=== PATIENT | male | born 1970 | race Caucasian/White ===

== ENCOUNTER 2017-11-07 11:45 | Emergency (ER) | payer MEDICAID ==
[2017-11-07] MEDS ORDERED: Fluorescein 1 MG Ophth Strip EYELF ONE (11:47)
[2017-11-07] MEDS ORDERED: Tetracaine HCl/PF 0.5% 4 ML Bottle EYELF ONE (11:47)
[2017-11-07 11:51] VITALS: BP 140/80
[2017-11-07] MEDS ORDERED: Gentamicin 0.3% Ophth Soln 5 ML Bottle ONE (12:09)
--- NOTE | 2017-11-07 12:12 | EDM.PDOC ---
ED HPI GENERAL MEDICAL PROBLEM - General Chief Complaint: ENT Problem Stated Complaint: PIECE OF METAL IN LEFT EYE Time Seen by Provider: 11/07/17 12:00 Source of Information: Reports: Patient History Limitations: Reports: No Limitations - History of Present Illness INITIAL COMMENTS - FREE TEXT/NARRATIVE: This 46 yo male patient reports to the ED with pain in his left eye. The patient reports he believes that he got something in his eye yesterday afternoon when he was grinding metal. The patient has continued to have pain in the eye since that time. The patient has not been seen by a provider for this at this time. Onset: Today Duration: Constant Location: Reports: Face (left eye) Quality: Reports: Ache, Sharp Severity: Moderate Improves with: Reports: None Worsens with: Reports: None Associated Symptoms: Reports: No Other Symptoms Left Eye Pain Score (Numeric/FACES): 8 - Related Data Allergies Allergy/AdvReac Type Severity Reaction Status Date / Time tramadol Allergy Dizziness Verified 12/13/15 11:18 Home Meds: Home Meds . [No Known Home Meds] 12/30/14 [History] Past Medical History - Past Surgical History Musculoskeletal Surgical History: Reports: Other (See Below) Other Musculoskeletal Surgeries/Procedures:: elbow surgeries Social & Family History - Family History Family Medical History: Noncontributory - Tobacco Use Smoking Status *Q: Current Every Day Smoker Years of Tobacco use: 28 Packs/Tins Daily: 1 - Caffeine Use Caffeine Use: Reports: Coffee, Soda - Recreational Drug Use Recreational Drug Use: No - Living Situation & Occupation Living situation: Reports: with Family Occupation: Employed ED ROS GENERAL - Review of Systems Review Of Systems: ROS reveals no pertinent complaints other than HPI. ED EXAM GENERAL W FULL EYE - Physical Exam Exam: See Below Exam Limited By: No Limitations General Appearance: Alert, WD/WN, No Apparent Distress Eye Exam: Left Eye: Corneal Abrasion, Foreign Body (Removed during visit), Bilateral Eye: PERRL Eyelids: Left: Edema, Foreign Body (upper) Cornea Exam: Left: Corneal Abrasion Extraocular Movements: Bilateral: Intact Pupils: Normal Accommodation Pupillary Size: Bilateral: 5 mm Pupillary Reaction: Bilateral: Brisk Ears: Normal External Exam, Normal Canal, Hearing Grossly Normal, Normal TMs Nose: Normal Inspection, Normal Mucosa, No Blood Throat/Mouth: Normal Inspection, Normal Lips, Normal Teeth, Normal Gums, Normal Oropharynx, Normal Voice, No Airway Compromise Head: Atraumatic, Normocephalic Neck: Normal Inspection, Supple, Non-Tender, Full Range of Motion Respiratory/Chest: No Respiratory Distress, Lungs Clear, Normal Breath Sounds, No Accessory Muscle Use, Chest Non-Tender Cardiovascular: Normal Peripheral Pulses, Regular Rate, Rhythm, No Edema, No Gallop, No JVD, No Murmur, No Rub GI/Abdominal: Normal Bowel Sounds, Soft, Non-Tender, No Organomegaly, No Distention, No Abnormal Bruit, No Mass (Male) Exam: Deferred Rectal (Males) Exam: Deferred Extremities: Normal Inspection, Normal Range of Motion, Non-Tender, Normal Capillary Refill, No Pedal Edema Neurological: Alert, Oriented, CN II-XII Intact, Normal Cognition, Normal Gait, Normal Reflexes, No Motor/Sensory Deficits Psychiatric: Normal Affect, Normal Mood Skin Exam: Warm, Dry, Intact, Normal Color, No Rash Lymphatic: No Adenopathy ED EYE w/ Add Procedure - Eye Procedure Eye FB Removal: Removal w/ Cotton Swab, Removal w/ Needle Antibiotic Oinment/Drps Admin: Left Eye Progress: Foreign body (x2) removed from cornea with eye spud during the visit and a foreign body removed from upper eyelid with cotton swab during visit. Course - Vital Signs Last Recorded V/S: Last Vital Signs Temp 37.1 C 11/07/17 11:50 Pulse 86 11/07/17 11:50 Resp 16 11/07/17 11:50 BP 140/80 11/07/17 11:50 Pulse Ox 99 11/07/17 11:50 - Orders/Labs/Meds Orders: Active Orders 24 hr Category Date Time Status Gentamicin [Garamycin 0.3% Ophth Soln] Med 11/07/17 13:00 Ordered 1 ml EYELF QID Medication Orders Gentamicin Sulfate (Garamycin 0.3% Ophth Soln) 1 ml EYELF QID JEANETTE Last Admin: 11/07/17 12:10 Dose: 1 ml Meds: Medications Generic Name Dose Route Start Last Admin Trade Name Freq PRN Reason Stop Dose Admin Gentamicin Sulfate 1 ml 11/07/17 13:00 11/07/17 12:10 Garamycin 0.3% Ophth Soln EYELF 1 ml QID JEANETTE Administration Discontinued Medications Generic Name Dose Route Start Last Admin Trade Name Javi PRN Reason Stop Dose Admin Fluorescein Sodium 1 mg 11/07/17 11:47 11/07/17 11:57 Ful-Desire EYELF 11/07/17 11:48 1 mg ONETIME ONE Administration Gentamicin Sulfate Confirm 11/07/17 12:09 Garamycin 0.3% Ophth Soln Administered 11/07/17 12:10 Dose 5 ml .ROUTE .STK-MED ONE Tetracaine HCl 1 ml 11/07/17 11:47 11/07/17 11:57 Tetracaine 0.5% Steri-Unit Roya EYELF 11/07/17 11:48 1 ml ONETIME ONE Administration Departure - Departure Time of Disposition: 12:09 Disposition: Home, Self-Care 01 Condition: Fair Clinical Impression: Foreign body of left eye Qualifiers: Encounter type: initial encounter Qualified Code(s): T15.92XA - Foreign body on external eye, part unspecified, left eye, initial encounter Corneal abrasion, left Qualifiers: Encounter type: initial encounter Qualified Code(s): S05.02XA - Injury of conjunctiva and corneal abrasion without foreign body, left eye, initial encounter - Discharge Information Instructions: Eye Foreign Body, [id number], Corneal Abrasion, [id number] Forms: ED Department Discharge Care Plan Goals: The patient was advised of the examination results during the visit. There were 2 pieces of foreign bodies removed from the left cornea and 1 removed from the left upper eyelid. The patient was discharged with Gentamycin Solution to place 1-2 drops in his left eye 4 times per day for at least 7 days. If the patient has any additional symptoms or further concerns, the patient should either visit his primary care facility or return to the emergency department. - My Orders Last 24 Hours: My Active Orders 11/07/17 13:00 Gentamicin [Garamycin 0.3% Ophth Soln] 1 ml EYELF QID - Assessment/Plan Last 24 Hours: My Active Orders 11/07/17 13:00 Gentamicin [Garamycin 0.3% Ophth Soln] 1 ml EYELF QID
[2017-11-07] MEDS ORDERED: Gentamicin 0.3% Ophth Soln 5 ML Bottle EYELF SCH (13:00)
== END 2017-11-07 12:22 | disposition home or self-care (01) ==
LOC: DL.ED 11:45
DX: T15.02XA Foreign body in cornea, left eye, initial encounter (principal); T15.12XA Foreign body in conjunctival sac, left eye, initial encounter; F17.210 Nicotine dependence, cigarettes, uncomplicated; Z88.5 Allergy status to narcotic agent
CPT/HCPCS: 65220; 67938; 99282; A9270-GY

== ENCOUNTER 2019-10-06 15:55 | Emergency (ER) | payer SELFPAY ==
[2019-10-06 16:11] VITALS: BP 140/83; PULSE 104
--- NOTE | 2019-10-06 16:32 | EDM.PDOC ---
ED HPI GENERAL MEDICAL PROBLEM - General Chief Complaint: General Stated Complaint: BLOOD PRESSURE HIGH Time Seen by Provider: 10/06/19 16:15 Source of Information: Reports: Patient, RN, RN Notes Reviewed History Limitations: Reports: No Limitations - History of Present Illness INITIAL COMMENTS - FREE TEXT/NARRATIVE: Presents to ER with complaint of high blood pressure. Patient states he checks his blood pressure at home with a wrist blood pressure monitor and states he has gotten various ranges from 1 60-200 systolically over 100-1 20 diastolically. Patient denies any blurred vision, headache, chest pains, shortness of breath. Patient states today he did not feel right, states his blood pressure read 160/100 at home. Patient does have an appointment to follow -up with Dr. Valdivia on October 18 regarding his blood pressure. Onset: Gradual Headache Pain Score (Numeric/FACES): 4 - Related Data Allergies Allergy/AdvReac Type Severity Reaction Status Date / Time tramadol Allergy Dizziness Verified 10/06/19 16:06 Home Meds: Home Meds Cyclobenzaprine [Flexeril] 10 mg PO BID PRN 10/06/19 [History] Past Medical History - Past Health History Medical/Surgical History: Denies Medical/Surgical History - Past Surgical History Musculoskeletal Surgical History: Reports: Other (See Below) Other Musculoskeletal Surgeries/Procedures:: elbow surgeries Social & Family History - Family History Family Medical History: Noncontributory - Tobacco Use Smoking Status *Q: Current Every Day Smoker Years of Tobacco use: 29 Packs/Tins Daily: 1 - Caffeine Use Caffeine Use: Reports: Coffee, Soda - Recreational Drug Use Recreational Drug Use: No - Living Situation & Occupation Living situation: Reports: with Family Occupation: Employed ED ROS GENERAL - Review of Systems Review Of Systems: Comprehensive ROS is negative, except as noted in HPI. ED EXAM, GENERAL - Physical Exam Exam: See Below Exam Limited By: No Limitations General Appearance: Alert, WD/WN, No Apparent Distress Eye Exam: Bilateral Eye: EOMI, Normal Inspection Ears: Normal External Exam, Hearing Grossly Normal Nose: Normal Inspection Throat/Mouth: Normal Inspection, Normal Voice, No Airway Compromise Head: Atraumatic, Normocephalic Neck: Normal Inspection, Supple, Non-Tender, Full Range of Motion Respiratory/Chest: No Respiratory Distress, Lungs Clear, Normal Breath Sounds, No Accessory Muscle Use, Chest Non-Tender Cardiovascular: Normal Peripheral Pulses, Regular Rate, Rhythm, No Edema, No Gallop, No JVD, No Murmur, No Rub Peripheral Pulses: 2+: Radial (L), Radial (R) GI/Abdominal: Normal Bowel Sounds, Soft, Non-Tender (Male) Exam: Deferred Rectal (Males) Exam: Deferred Back Exam: Normal Inspection, Full Range of Motion, NT Extremities: Normal Inspection, Normal Range of Motion, Non-Tender, Normal Capillary Refill, No Pedal Edema Neurological: Alert, Oriented, CN II-XII Intact, Normal Cognition, Normal Gait, Normal Reflexes, No Motor/Sensory Deficits Psychiatric: Normal Affect, Normal Mood Skin Exam: Warm, Dry, Intact, Normal Color, No Rash Lymphatic: No Adenopathy Course - Vital Signs Last Recorded V/S: Last Vital Signs Temp 98.2 F 10/06/19 16:08 Pulse 104 H 10/06/19 16:08 Resp 18 10/06/19 16:08 BP 140/83 10/06/19 16:08 Pulse Ox 100 10/06/19 16:08 Departure - Departure Time of Disposition: 16:33 Disposition: Home, Self-Care 01 Condition: Fair Clinical Impression: Physically well but worried - Discharge Information *PRESCRIPTION DRUG MONITORING PROGRAM REVIEWED*: No *COPY OF PRESCRIPTION DRUG MONITORING REPORT IN PATIENT FABRICIO: No Instructions: Hypertension, Adult, [id number] Forms: ED Department Discharge Additional Instructions: Follow up with Dr. Valdivia May use Tylenol as directed for headache Monitor blood pressure and return to the ER if you are having any further trouble Sepsis Event Note - Evaluation Sepsis Screening Result: No Definite Risk - Focused Exam Vital Signs: Vital Signs Temp Pulse Resp BP Pulse Ox 10/06/19 16:08 98.2 F 104 H 18 140/83 100 Date Exam was Performed: 10/06/19 Time Exam was Performed: 16:34
== END 2019-10-06 16:40 | disposition home or self-care (01) ==
LOC: DL.ED 15:55
DX: Z71.1 Person with feared health complaint in whom no diagnosis is made (principal); Z88.5 Allergy status to narcotic agent; Z79.899 Other long term (current) drug therapy; F17.210 Nicotine dependence, cigarettes, uncomplicated
CPT/HCPCS: 99283